=== PATIENT | female | born 1960 | race Caucasian/White ===

== ENCOUNTER 2017-01-11 08:44 | Outpatient (CLI) | payer OTHER | END 2017-01-11 08:45 | LOC: OUT 08:44 | PROVIDERS: ATTEND General Practice | DX: N81.2 Incomplete uterovaginal prolapse (principal) | CPT/HCPCS: 99203 ==

== ENCOUNTER 2017-02-08 08:39 | Outpatient (CLI) | payer OTHER | END 2017-02-08 09:00 | LOC: RT 08:39 | PROVIDERS: ATTEND General Practice | DX: Z01.810 Encounter for preprocedural cardiovascular examination (principal) ==

== ENCOUNTER 2017-03-08 08:33 | Outpatient (CLI) | payer OTHER | END 2017-03-08 10:33 | LOC: OUT 08:33 | PROVIDERS: ATTEND General Practice | DX: Z48.89 Encounter for other specified surgical aftercare (principal) | CPT/HCPCS: 99213 ==

== ENCOUNTER 2017-04-05 09:01 | Outpatient (CLI) | payer OTHER | END 2017-04-05 09:02 | LOC: OUT 09:01 | PROVIDERS: ATTEND General Practice | DX: Z48.89 Encounter for other specified surgical aftercare (principal) | CPT/HCPCS: 99213 ==

== ENCOUNTER 2017-11-10 15:30 | Outpatient (CLI) | payer OTHER ==
--- NOTE | 2017-11-10 19:08 | Diagnostic Imaging Report ---
GEMINI DAN [facility] [id number] [address] [facility] [address] [place] [address]. [id number] Report Submission Date: Nov 10, 2017 3:52:16 PM CDT Patient Study Name: KOBI ULRICH Date: Nov 10, 2017 3:28:31 PM CDT Modality Type: DX Gender: F Description: UPPER EXTREMITY : 56 Institution: [facility] Physician: GEMINI DAN Examination: Plain film right finger History: RT 2ND DIGIT, PAIN IN RT 2ND DIGIT IN AREA OF DISTAL PHALANGEAL JOINT AFTER SHUTTING FINGER IN CAR DOOR TODAY (Hx) Comparison exams: None available Findings: 3 views the right 2nd digit demonstrates mild articular degenerative changes. No fracture. No dislocation. No soft tissue abnormality. Impression: No acute osseous abnormality Electronically signed on Nov 10, 2017 3:52:16 PM CDT by: Jose ZAMARRIPA
== END 2017-11-10 15:32 ==
LOC: RAD 15:30
PROVIDERS: ATTEND Family Medicine
DX: S69.91XA Unspecified injury of right wrist, hand and finger(s), initial encounter (principal); X58.XXXA Exposure to other specified factors, initial encounter; Y92.9 Unspecified place or not applicable; Y93.9 Activity, unspecified; Y99.9 Unspecified external cause status
CPT/HCPCS: 73140

== ENCOUNTER 2018-07-11 08:44 | Outpatient (CLI) | payer OTHER ==
--- NOTE | 2018-07-11 09:14 | Diagnostic Imaging Report ---
JOCELYN MARCIAL [facility] [address] [address] [facility] [address] [place], [place]. [address] Report Submission Date: Jul 11, 2018 9:11:08 AM CDT Patient Study Name: KOBI ULRICH Date: Jul 11, 2018 8:49:46 AM CDT Modality Type: DX Gender: F Description: FINGER 2 VIEWS OR MORE : 56 Institution: [facility] Physician: JOCELYN MARCIAL Examination: Plain film right hand/finger History: CYST ON RIGHT FIRST FINGER, MID PHALANGE X 3 WEEKS. NKI. Comparison exams: None available Findings: 3 views of the right hand and 2nd digit demonstrates articular degenerative changes. No fracture. No dislocation. Soft tissue prominence near the proximal interphalangeal joint of the 2nd digit. Impression: Articular degenerative changes. No acute appearing osseous abnormality. Soft tissue fullness 2nd digit proximal phalangeal joint - possible ganglion cyst. Consider obtaining MRI to further evaluate. Electronically signed on Jul 11, 2018 9:11:08 AM CDT by: Jose ZAMARRIPA
== END 2018-07-11 08:46 ==
LOC: RAD 08:44
PROVIDERS: ATTEND Family Medicine
DX: R22.31 Localized swelling, mass and lump, right upper limb (principal); M24.141 Other articular cartilage disorders, right hand
CPT/HCPCS: 73140